=== PATIENT | female | born 1960 | race Caucasian/White ===

== ENCOUNTER 2017-09-12 11:10 | Outpatient (CLI) | payer OTHER ==
[2017-09-12 11:51] LABS: Hemoglobin 13.3 g/dL (12.0-16.0); Mean Corpuscular HGB CONC 32.7 g/dL (32.0-36.0); Mean Corpuscular Hemoglobin 28.9 pg (27.0-31.0); Mean Corpuscular Volume 88.6 fl (81.0-99.0); Mean Platelet Volume 7.1 fL (7.4-10.4); Platelet Count 337 thou/uL (130-400); RBC Distribution Width 13.7 % (11.5-14.5); White Blood Cell (WBC) Count 7.1 thou/uL (4.8-10.8)
[2017-09-12 12:02] LABS: ALT (SGPT) 21 U/L (8-55); AST (SGOT) 19 U/L (5-34); Albumin 4.6 g/dL (3.5-5.0); Alkaline Phosphatase 74 U/L (40-150); Anion Gap 14 mmol/L (10-20); BUN (Urea Nitrogen) 17 mg/dL (9.8-20.1); Bilirubin, Total 0.5 mg/dL (0.2-1.2); CK (CPK) 39 U/L (29-168); CRP (Inflammatory) Less than 0.50 mg/dL (= or < 0.5); Calc. Creatinine Clearance 0 mL/min (70-130); Calcium 9.6 mg/dL (7.8-10.44); Carbon Dioxide 28 mmol/L (22-29); Chloride 102 mmol/L (98-107); Estimated GFR-MDRD 77; Glucose 95 mg/dL (70-105); Phosphorus 3.4 mg/dL (2.3-4.7); Potassium 4.4 mmol/L (3.5-5.1); Protein, Total 7.6 g/dL (6.0-8.3); Sodium 140 mmol/L (136-145)
--- NOTE | 2017-09-12 12:11 | RAD ---
TWO VIEWS RIGHT TIBIA AND FIBULA: Comparison: None. History: Left hip pain that radiates to the right lower leg for a few months. FINDINGS: Two views of the right tibia and fibula shows no evidence of acute fracture or dislocation. No degene rative changes are seen in the ankle. Mild degenerative changes are seen in the knee. IMPRESSION: Mild right knee osteoarthritis without acute osseous abnormality. POS: [facility]
--- NOTE | 2017-09-12 12:22 | RAD ---
FRONTAL AND LATERAL IMAGING OF THE RIGHT FEMUR: 09/12/2017 HISTORY: Pain radiating down the right leg. COMPARISON: None. FINDINGS: There is mild lateral osteophyte formation involving the acetabular roof. There is no displaced frac ture or evidence of dislocation seen. There is degenerative change involving the right knee, incompl etely assessed, primarily affecting the patellofemoral interspace and the medial compartment. IMPRESSION: Degenerative change with no acute osseous abnormality noted. POS: [facility]
[2017-09-14 09:20] LABS: A/G Ratio 1.4 (0.7-1.7); Albumin 4.1 g/dL (2.9-4.4); Alpha 1 0.2 g/dL (0.0-0.4); Alpha 2 0.8 g/dL (0.4-1.0); Beta 1.1 g/dL (0.7-1.3); Gamma 0.9 g/dL (0.4-1.8); M-Spike Not Observed g/dL (Not Observed)
== END 2017-09-12 11:11 | disposition home or self-care (01) ==
LOC: SCSRAD 11:10
PROVIDERS: ATTEND Internal Medicine
DX: M79.604 Pain in right leg (principal); M79.7 Fibromyalgia; R53.83 Other fatigue; I10 Essential (primary) hypertension; M19.90 Unspecified osteoarthritis, unspecified site; M17.11 Unilateral primary osteoarthritis, right knee; Z79.899 Other long term (current) drug therapy
CPT/HCPCS: 36415; 80053; 82550; 83970; 84100; 84165; 85027; 85652; 86140

== ENCOUNTER 2017-09-20 08:31 | Outpatient (CLI) | payer OTHER | END 2017-09-20 08:32 | disposition home or self-care (01) | LOC: BICMAMMO 08:31 | PROVIDERS: ATTEND Internal Medicine | DX: Z12.31 Encounter for screening mammogram for malignant neoplasm of breast (principal) | CPT/HCPCS: 77063; 77067 ==

== ENCOUNTER 2017-10-12 10:33 | Outpatient (CLI) | payer OTHER ==
--- NOTE | 2017-10-12 15:36 | NM ---
WHOLE BODY BONE SCAN: CLINICAL HISTORY: Right lower extremity pain. COMPARISON: Reference is made to preceding right lower extremity radiograph series 09/12/17. FINDINGS: There is scattered degenerative activity seen within the axial and appendicular skeleton. There is n o focal scintigraphic activity to indicate fracture or osseous lesion of the right lower extremity. IMPRESSION: Scattered degenerative changes. POS: [facility]
== END 2017-10-12 10:34 | disposition home or self-care (01) ==
LOC: NM 10:33
PROVIDERS: ATTEND Internal Medicine
DX: M25.571 Pain in right ankle and joints of right foot (principal); M19.071 Primary osteoarthritis, right ankle and foot
CPT/HCPCS: 78306; A9503

== ENCOUNTER 2017-11-14 08:03 | Outpatient (CLI) | payer OTHER ==
--- NOTE | 2017-11-14 10:40 | MRI ---
MRI LUMBAR SPINE WITHOUT CONTRAST: Multiplanar, multisequential imaging lumbar spine obtained. INDICATION: Low back pain. Right lower extremity radiculopathy. FINDINGS: The lumbar vertebrae maintain normal height and alignment. Disk spaces are maintained. Mild degener ative spurring is seen from the lumbar vertebrae. At L1-2, no significant disk bulge. Mild facet arthrosis. No central canal or foraminal stenosis. AT L2-3, minimal disk bulge. Mild facet hypertrophy. No significant central canal or foraminal sten osis. At L3-4, no significant disk bulge. Moderate facet hypertrophy. Minimal central canal stenosis. At L4-5, minimal disk bulge abuts the anterior thecal sac. Mild facet hypertrophy. No significant c entral canal or foraminal stenosis. At L5-S1, very mild disk bulge abuts the thecal sac. Mild to moderate facet hypertrophy. No signifi cant central canal or foraminal stenosis. IMPRESSION: No evidence of significant disk bulge or disk protrusion at any of the lumbar levels. No significant central canal or foraminal stenosis identified. POS: [facility]
== END 2017-11-14 08:04 | disposition home or self-care (01) ==
LOC: SCSMRI 08:03
PROVIDERS: ATTEND Orthopaedic Surgery
DX: M54.16 Radiculopathy, lumbar region (principal)
CPT/HCPCS: 72148

== ENCOUNTER 2018-09-26 11:17 | Outpatient (CLI) | payer OTHER | END 2018-09-26 11:18 | disposition home or self-care (01) | LOC: BICMAMMO 11:17 | PROVIDERS: ATTEND Internal Medicine | DX: Z12.31 Encounter for screening mammogram for malignant neoplasm of breast (principal); R92.1 Mammographic calcification found on diagnostic imaging of breast | CPT/HCPCS: 77063; 77067 ==

== ENCOUNTER 2019-09-30 13:16 | Emergency (ER) | payer OTHER ==
[~2019-09-30 13:16] MED LIST: Iopamidol-370 76% 500 ML 1 ML ONE
[2019-09-30 13:45] LABS: #Basophils 0.1 thou/uL (0.0-0.2); #Lymphocytes 2.6 thou/uL (1.20-3.40); #Monocytes 1.1 thou/uL (0.11-0.59); #Neutrophils 6.2 thou/uL (1.40-6.50); %Basophils 0.6 % (0.0-1.0); %Eosinophils 0.4 % (0.0-10.0); %Lymphocytes 25.7 % (21.0-51.0); %Neutrophils 62.3 % (42.0-75.0); Hemoglobin 14.3 g/dL (12.0-16.0); Mean Corpuscular HGB CONC 33.3 g/dL (32.0-36.0); Mean Corpuscular Hemoglobin 30.6 pg (27.0-31.0); Mean Corpuscular Volume 92.1 fL (78.0-98.0); Mean Platelet Volume 7.4 fL (7.4-10.4); Platelet Count 325 thou/uL (130-400); RBC Distribution Width 12.9 % (11.5-14.5); Red Blood Cell (RBC) Count 4.67 mill/uL (4.20-5.40); White Blood Cell (WBC) Count 9.9 thou/uL (4.8-10.8)
[2019-09-30 14:05] LABS: ALT (SGPT) 27 U/L (8-55); AST (SGOT) 19 U/L (5-34); Albumin 4.9 g/dL (3.5-5.0); Alkaline Phosphatase 58 U/L (40-110); Anion Gap 15 mmol/L (10-20); BUN (Urea Nitrogen) 12 mg/dL (9.8-20.1); Calc. Creatinine Clearance 0 mL/min (70-130); Calcium 9.5 mg/dL (7.8-10.44); Carbon Dioxide 25 mmol/L (22-29); Chloride 99 mmol/L (98-107); Estimated GFR-MDRD 68; Globulin 2.8 g/dL (2.4-3.5); Glucose 84 mg/dL (70-105); Lipase 17 U/L (8-78); Potassium 3.6 mmol/L (3.5-5.1); Protein, Total 7.7 g/dL (6.0-8.3); Sodium 135 mmol/L (136-145)
[2019-09-30 15:06] LABS: Bilirubin Negative (Negative); Blood, Urine Negative (Negative); Clarity Clear (Clear); Glucose, Urine (Dipstick) Normal (Negative); Leukocyte Negative Leu/uL (Negative); Nitrite Negative (Negative); Protein, Urine (Dipstick) Negative (Neg-Trace); Urobilinogen Normal mg/dL (Less than 2)
[2019-09-30] MEDS ORDERED: Morphine 4 MG/ML VIAL ONE (16:09)
[2019-09-30] MEDS ORDERED: Ondansetron PF 4 MG/2 ML Vial ONE (16:09)
--- NOTE | 2019-09-30 17:38 | CT ---
CT OF ABDOMEN AND PELVIS PERFORMED WITH CONTRAST ENHANCEMENT: 09/30/19 HISTORY: Abdominal pain. History of gastric bypass. The lung bases are clear of infiltrates. There are fatty changes of the liver. The spleen is normal. The pancreas region is unremarkable. The gallbladder has been removed. Right and left adrenal glands and right and left kidneys are normal in size. There is no significant periaortic or mesenteric adenopathy. Postoperative changes of the stomach are present. CT OF PELVIS PERFORMED WITH CONTRAST ENHANCEMENT: The appendix is normal. No adenopathy, mass or free fluid. IMPRESSION: No acute findings of the abdomen or pelvis. Other incidental findings as noted above. POS: [facility]
== END 2019-09-30 18:04 | disposition home or self-care (01) ==
LOC: ERS 13:16
DX: R10.13 Epigastric pain (principal); R10.11 Right upper quadrant pain; E66.9 Obesity, unspecified; I10 Essential (primary) hypertension; E78.5 Hyperlipidemia, unspecified; F41.9 Anxiety disorder, unspecified; F31.9 Bipolar disorder, unspecified
CPT/HCPCS: 36415; 74177; 80053; 81003; 83690; 85025; 96361; 96374; 96375; J2270; J2405; Q9967

== ENCOUNTER 2020-12-10 12:21 | Outpatient (CLI) | payer OTHER | END 2020-12-10 12:22 | disposition home or self-care (01) | LOC: SCSRAD 12:21 | PROVIDERS: ATTEND Family Medicine | DX: M47.26 Other spondylosis with radiculopathy, lumbar region (principal); M51.16 Intervertebral disc disorders with radiculopathy, lumbar region | CPT/HCPCS: 72100 ==

== ENCOUNTER 2021-10-12 09:06 | Outpatient (CLI) | payer OTHER | END 2021-10-12 09:07 | disposition home or self-care (01) | LOC: BICMAMMO 09:06 | PROVIDERS: ATTEND Family Medicine | DX: Z12.31 Encounter for screening mammogram for malignant neoplasm of breast (principal); Z13.820 Encounter for screening for osteoporosis; Z78.0 Asymptomatic menopausal state; Z98.890 Other specified postprocedural states; M85.852 Other specified disorders of bone density and structure, left thigh | CPT/HCPCS: 77063; 77067; 77080 ==

== ENCOUNTER 2024-10-06 13:00 | Outpatient (CLI) | payer BC | END 2024-10-06 13:01 | disposition home or self-care (01) | LOC: BICRAD 13:00 | PROVIDERS: ATTEND Internal Medicine | DX: R05.9 Cough, unspecified (principal) | CPT/HCPCS: 71046 ==

== ENCOUNTER 2025-07-15 11:44 | Outpatient (CLI) | payer BC | END 2025-07-15 11:45 | disposition home or self-care (01) | LOC: BICRAD 11:44 | PROVIDERS: ATTEND Nurse Practitioner Family | DX: R05.1 Acute cough (principal); R06.2 Wheezing | CPT/HCPCS: 71046 ==